=== PATIENT | female | born 1990 | race Caucasian/White ===

== ENCOUNTER 2024-03-26 08:59 | Outpatient (CLI) | payer BC ==
[2024-03-26 15:20] LABS: HCT - HEMATOCRIT 37.8 % (37.0-47.0); HGB - HEMOGLOBIN 11.8 g/dL (12.0-16.0); MEAN CORPUSCULAR HEMOGLOBIN 29.2 pg (27.0-31.0); MEAN CORPUSCULAR HGB CONC 31.2 g/dL (32.0-36.0); MEAN CORPUSCULAR VOLUME 93.6 fL (81.0-99.0); RED BLOOD COUNT 4.04 10^6/uL (4.20-5.40); RED CELL DISTRIBUTION WIDTH 13.1 % (12.0-15.0); WHITE BLOOD COUNT 10.3 x10^3/uL (4.8-10.8)
[2024-03-27 04:11] LABS: RPR Non Reactive (Non Reactive)
[2024-03-27 12:10] LABS: VARICELLA-ZOSTER AB IGG 813 index (Immune >165)
== END 2024-03-26 09:00 | disposition home or self-care (01) ==
LOC: LAB.S 08:59
PROVIDERS: ATTEND Obstetrics & Gynecology
DX: Z36.89 Encounter for other specified antenatal screening (principal)
CPT/HCPCS: 36415; 82950; 85027; 86592; 86787

== ENCOUNTER 2024-04-20 08:35 | Outpatient (CLI) | payer BC ==
--- NOTE | 2024-04-20 14:39 | Ultrasound Report ---
PROCEDURE: OB Follow up INDICATIONS: SUPERVISION OF OUTSIDE/PRIOR DATING DATA: Last menstrual period (LMP): Unknown. LMP-based estimated date of delivery (BEST): Unknown. First dating scan (date and location): Separate ultrasound from Dr. Zhang dated 04/20/2024. Estimated date of delivery (BEST) from first dating scan: 05/29/2024. Data below was generated using the clinically reported BEST of 05/29/2024 TECHNIQUE: Real-time scanning was performed of the fetus, with image documentation and biometric measurements. Endovaginal scanning: Not performed. COMPARISON: None. FINDINGS: General: A single living intrauterine gestation is present. Presentation: Vertex Placenta: Placental position is posterior, without previa. Amniotic fluid index: 17.3 cm, within normal limits for gestational age. heart rate: 140 beats per minute. Maternal cervical canal: 3.9 cm long; normal length is 2.5 cm or more. biometrics: Biparietal diameter: 8.3 cm, 33 weeks 4 days, 24th percentile Head circumference: 30.3 cm, 33 weeks 5 days, 6th percentile Abdominal circumference: 29.2 cm, 33 weeks 1 day, 20th percentile Femur length: 6.8 cm, 35 weeks 0 days, 55th percentile Estimated gestational age from initial scan: 34 weeks 3 days Composite gestational age from present scan: 33 weeks 6 days Estimated weight and percentile: 2274 g, 27th percentile Measurement variability in biometric dating: +/- 10 days from 12-20 weeks gestation, +/- 2 weeks from 20-30 weeks gestation, +/- 3 weeks at 30 weeks gestation or more. Other: Not applicable. IMPRESSION: 1.Single live intrauterine . size is concordant with dates provided from same day outs lilian ultrasound. 2.Amniotic fluid index is within normal limits. 3.No sonographic evidence of placental previa. Reviewed by: Miquel Gutierrez MD on 04/20/2024 2:37 PM PDT Approved by: Miquel Gutierrez MD on 04/20/2024 2:37 PM PDT Station ID: [id number]
== END 2024-04-20 08:36 | disposition home or self-care (01) ==
LOC: DI 08:35
PROVIDERS: ATTEND Nurse Practitioner
DX: O09.893 Supervision of other high risk pregnancies, third trimester (principal); O43.93 Unspecified placental disorder, third trimester; Z3A.33 33 weeks gestation of pregnancy